=== PATIENT | female | born 1980 | race Two or more races ===

== ENCOUNTER 2024-04-10 09:04 | Emergency (ER) | payer BC, SELFPAY ==
[2024-04-10 09:16] VITALS: BP 120/79; PULSE 109; RESP 20; TEMP 38.3; O2SAT 97; BMI 27.1
--- NOTE | 2024-04-10 09:27 | XR_ITS ---
Examination: Abdomen sonogram, Limited Date and time of exam: April 10, 2024 10:28 AM INDICATIONS: Onset right upper abdominal pain beginning 4 days ago Technique: Real-time moon scale transabdominal sonographic images of the upper abdomen obtained. Findings: Multiple gallstones Gallbladder sludge Gallbladder wall is thickened 10 mm Common bile duct is enlarged 0.8 cm no definite stones Pancreatic head 2.5 cm Liver 14.5 cm fatty liver Normal hepatopedal portal venous flow Patent IVC IMPRESSION: Findings most consistent with acute calculus cholecystitis Abnormally enlarged common bile duct 0.8 cm, suggest MRCP follow-up
--- NOTE | 2024-04-10 09:28 | PD.EDRME ---
Rapid Medical Screening Exam RME Arrival date/time: 04/10/24 09:04 43-year-old female presents emergency department complaints of abdominal pain Chief Complaint: Abdominal Pain Time Seen by Provider: 04/10/24 09:06 Vital signs: Vital Signs Temperature 101.0 F H 04/10/24 09:16 Pulse Rate 109 H 04/10/24 09:16 Respiratory Rate 20 04/10/24 09:16 Blood Pressure 120/79 04/10/24 09:16 Pulse Oximetry (%) 97 04/10/24 09:16 Oxygen Delivery Method Room Air 04/10/24 09:16
--- NOTE | 2024-04-10 09:37 | PD.EDABDPN ---
ED Abdominal Pain RME/HPI General Chief Complaint: Abdominal Pain Stated complaint: Right side abdominal pain X 4 days Time seen by provider: 04/10/24 09:06 Arrival date/time: 04/10/24 09:04 RME / HPI RME / HPI narrative: 04/10/24 09:04 43-year-old female presents emergency department complaints of abdominal pain This section includes all my notes and documentations, including HPI, PE, MDM, Procedure Notes, and PLAN. Darian Cardona MD HPI: 43-year-old female with known gallstones presents with severe RUQ tenderness and nausea since yesterday. With subjective fever and chills and aches. No cough or congestion. No urinary symptoms. No other complaints. ROS: Respiratory: negative except as documented in HPI. Gastrointestinal: negative except as documented in HPI. Genitourinary: negative except as documented in HPI. Musculoskeletal: negative except as documented in HPI. Skin: negative except as documented in HPI. Neurological: negative except as documented in HPI. Physical Exam: General: Alert and oriented. Appears uncomfortable. Eyes: Conjunctivae and lids clear. ENT: No nasal congestion. Pharynx normal. Tympanic membrane normal bilaterally. Neck: Supple. Heart: RRR. Lungs: No respiratory distress. Good air movement. No rhonchi, wheezing, rales. Abdomen: Soft with RUQ tenderness. Normal bowel sounds. No distension. No rebound or guarding. Back: No CVA tenderness. Skin: Warm and dry. Neuro: Alert and oriented X 3. I reviewed EMS and correction notes. I reviewed all diagnostic test results. My interpretation of the chest x-ray is no acute findings. My review of the abdominal CT report is cholecystitis. Blood tests and urine tests remarkable for WBC 15.9 and normal LFT. At this point, diagnoses include cholecystitis. Treatment here included IV fluid, Zofran 4 mg IV, Toradol 30 mg IV, morphine 4 mg IV, Tylenol 1000 mg, and Unasyn 1.5 g IV. Significant improvement noted subjectively and objectively. I discussed the case with our surgeon on-call (Dr. Sena). About the presentation and exam and diagnostics and treatments here. And possible need of further care in the hospital. Recommended outpatient follow-up with him. Based on my best medical judgment, made decision no further evaluation or treatment indicated at this time. Patient understands and agrees to the discharge instructions customized and printed, see below. Related Data Previous Rx's ?Medication ?Instructions ?Recorded etodolac 400 mg tablet 400 mg PO BID PRN pain #30 tabs 03/30/21 methocarbamol 750 mg tablet 750 mg PO TID PRN pain #30 tabs 03/30/21 acetaminophen 300 mg-codeine 30 mg 2 tab PO TID PRN pain #20 tabs 04/10/24 tablet amoxicillin 875 mg-potassium 1 tab PO BID #10 tabs 04/10/24 clavulanate 125 mg tablet ondansetron 4 mg disintegrating 4 mg PO TID PRN nausea and 04/10/24 tablet vomiting 5 days #10 tabs Allergies Allergy/AdvReac Type Severity Reaction Status Date / Time No Known Allergies Allergy Verified 03/30/21 20:05 Course Quality Measures Current suspected stage: ruled out Possible source: GI tract/intra-abdominal Blood cultures ordered: yes Antibiotic ordered: Yes Pertinent labs: 04/10/24 09:15 Lactic Acid 0.9 mMol/L (0.4-2.0) Procalcitonin 0.11 ng/ml (0.0-0.49) sepsis Orders Category Date Time Status Bedside COVID-19 Antigen Test NOW Care 04/10/24 09:27 Active Bedside Influenza A&B Antigen Test NOW Care 04/10/24 09:27 Completed Insert IV NOW Care 04/10/24 09:28 Active US gall bladder Stat Exams 04/10/24 09:27 Completed XR chest 1V portable Stat Exams 04/10/24 09:38 Completed Blood Culture (Lab) Stat Lab 04/10/24 09:25 Received CBC Stat Lab 04/10/24 09:15 Completed Comprehensive Metabolic Panel Stat Lab 04/10/24 09:15 Completed HCG Qualitative,Urine Stat Lab 04/10/24 09:37 Completed Lactate (Lactic Acid) Stat Lab 04/10/24 09:15 Completed Lipase Stat Lab 04/10/24 09:15 Completed Procalcitonin Stat Lab 04/10/24 09:15 Completed Urinalysis Stat Lab 04/10/24 09:37 Completed Urine Culture Stat Lab 04/10/24 09:47 Received Acetaminophen Tab [Tylenol ES Tab] Med 04/10/24 09:29 Discontinued 1,000 mg PO X1 ONE Ampicillin/Sulbac Inj [Unasyn Inj] 1.5 gm Med 04/10/24 12:04 Discontinued Sodium Chloride 0.9% (P) [Ns 0.9% (P)] 50 ml IV X1 Ketorolac Inj [Toradol Inj] Med 04/10/24 09:37 Discontinued 30 mg IVP X1 ONE Morphine Inj Med 04/10/24 09:37 Discontinued 4 mg IVP X1 ONE Ondansetron Inj [Zofran Inj] Med 04/10/24 09:37 Discontinued 4 mg IV X1 ONE Sodium Chloride 0.9% 1000 ml [Ns] 1,000 ml Med 04/10/24 09:37 Discontinued IV 999 mls/hr Vital Signs Vital signs: Vital Signs Temperature 101.0 F H 04/10/24 09:16 Pulse Rate 109 H 04/10/24 09:16 Respiratory Rate 20 04/10/24 09:16 Blood Pressure 120/79 04/10/24 09:16 Pulse Oximetry (%) 97 04/10/24 09:16 Oxygen Delivery Method Room Air 04/10/24 09:16 Abdominal Pain MDM Patient data External records reviewed:: [facility] previous records Clinical information provided by:: patient Social determinants that could affect healthcare access:: none Patient has the following chronic illnesses:: Gallstones How is presenting disease/condition affected by chronic disease/condition?: exacerbated by Evaluation data The following diagnostics were reviewed and interpreted by me:: lab results and radiology exam(s) Lab and/or radiology exams considered but not ordered:: None Interpretation Summary: Cholecystitis Medications / Prescriptions Medications or Prescriptions considered but not ordered:: None Medication administrations:: Medication Administration History Discontinued Medications Acetaminophen (Acetaminophen 500 Mg Tablet) 1,000 mg PO X1 ONE Stop: 04/10/24 09:30 Last Admin: 04/10/24 09:39 Dose: 1,000 mg Documented By: RENETTA Sodium Chloride (Ns) 1,000 mls @ 999 mls/hr IV .Q1H1M ONE Stop: 04/10/24 10:37 Last Infusion: 04/10/24 12:58 Dose: Infused Documented By: Admin: 04/10/24 10:09 Dose: 999 mls/hr Documented By: RENETTA Ampicillin Sodium/Sulbactam (Sodium 1.5 gm/ Sodium Chloride) 50 mls @ 100 mls/hr IV X1 ONE Stop: 04/10/24 12:05 Last Admin: 04/10/24 12:59 Dose: 100 mls/hr Documented By: ANASTACIA Ketorolac Tromethamine (Ketorolac Inj 30 Mg/Ml Vial) 30 mg IVP X1 ONE Stop: 04/10/24 09:38 Last Admin: 04/10/24 10:11 Dose: 30 mg Documented By: TM Morphine Sulfate (Morphine Sulf Inj 10 Mg/Ml Vial) 4 mg IVP X1 ONE Stop: 04/10/24 09:38 Last Admin: 04/10/24 10:11 Dose: 4 mg Documented By: TM Comments: HR 96 BP 120/81 Ondansetron HCl (Ondansetron Inj 2 Mg/Ml Inj 2 Ml) 4 mg IV X1 ONE; Protocol Stop: 04/10/24 09:38 Last Admin: 04/10/24 10:11 Dose: 4 mg Documented By: RENETTA See charting Consultations Consultation(s) initiated? (list below): Yes Consultation #1 (Physician, Specialty, Details): Dr. Sena Diagnosis Differential diagnosis abdominal pain: acute appendicitis, calculus of kidney, constipation, diverticulitis, gastroenteritis, pancreatitis, small bowel obstruction and other (Cholecystitis) Most likely diagnosis given after review of the tests above:: Cholecystitis Admission Indicated Admission indicated?: not indicated Explain why admission is indicated or not indicated:: Dr Sena recommended outpatient treatment. Admission Request Was there a request for admission?: No Disposition Plan Disposition Plan: Discharge Discharge Attestation Discharge Attestation: The patient and all family members were given an opportunity to ask questions and understood the discharge instructions. Discharge instructions specifically effects, indications for sooner follow up or return to the emergency department, and the expected course of current diagnosis. Patient condition: Stable Discharge Plan Plan Patient Disposition: HOME (Self Care) Prescriptions/Referrals Prescriptions/Med Rec: New acetaminophen-codeine 300-30 mg tablet 2 tab PO TID MDD 6 PRN (Reason: pain) Qty: 20 0RF ondansetron 4 mg tablet,disintegrating 4 mg PO TID PRN (Reason: nausea and vomiting) 5 Days Qty: 10 0RF amoxicillin-pot clavulanate 875-125 mg tablet 1 tab PO BID Qty: 10 0RF No Action methocarbamol 750 mg tablet 750 mg PO TID PRN (Reason: pain) Qty: 30 0RF etodolac 400 mg tablet 400 mg PO BID PRN (Reason: pain) Qty: 30 0RF Referrals: Uvaldo Garsia MD [Primary Care Provider] - In 1 week Problem List Clinical Impression: Acute cholecystitis Patient/Caregiver Discharge Instructions Education Materials: ED Cholecystitis, Presumed Additional Instructions: Discharge Instructions from Dr. Cardona: 1. After evaluation, your symptoms are due to gallstones with infection.? You need gallbladder to help digest fatty foods. 2. So to prevent future attacks, avoid all fatty and oily and greasy and buttery and dairy foods.? This usually means take out and fast food restaurants. 3. Zofran for nausea/vomiting.? Tylenol with codeine for severe pain.? Augmentin to help early infection and to prevent severe infection. 4. See our surgeon (Dr. Sena) on 04/14/2024 for further care, including discussion of elective surgery.? Call and let them know you were seen in the ER and he was on-call, and they will give you an appointment. 5. Seek immediate medical care with intolerable pain or with any concerns. Print Language: Divehi Stand Alone Forms: Karen Award Info., Patient Portal Info Letter
[2024-04-10 09:38] LABS: Lactate (Lactic Acid) 0.9 mMol/L (0.4-2.0)
--- NOTE | 2024-04-10 09:38 | XR_ITS ---
Examination: AP chest single view Technique one AP portable upright chest single view Exam date and time: April 10, 2024 1002 hours INDICATIONS: Onset fever today. FINDINGS: Normal heart size Lungs are clear. The osseous structures are intact IMPRESSION: No active disease
[2024-04-10 09:39] VITALS: TEMP 38.3
[2024-04-10 09:39] LABS: Basophils # (Auto) 0.1 Thou/mm3 (0.0-0.2); Basophils % (Auto) 0 % (0-2.5); Eosinophils % (Auto) 0 % (0-10); Hemoglobin 12.7 g/dL (12.0-16.0); Immature Granulocytes % (Auto) 0 % (0-0); Immature Granulocytes Auto 0.06 Thou/mm3 (0.00-0.00); Lymphocytes # (Auto) 1.4 Thou/mm3 (1.0-4.8); Lymphocytes % (Auto) 9 % (10-50); Mean Corpuscular HGB Conc 33.4 g/dl (31.0-37.0); Mean Corpuscular Hemoglobin 29.3 pg (25.0-35.0); Mean Corpuscular Volume 88 fL (80-100); Monocytes # (Auto) 1.3 Thou/mm3 (0.0-0.8); Monocytes % (Auto) 8 % (0-12); Neutrophils # (Auto) 13.1 Thou/mm3 (1.8-7.7); Neutrophils % (Auto) 82 % (37-80); Nucleated Red Blood Cell % 0 /100 WBC (0); Platelet Count 276 Thou/mm3 (140-440); RDW Standard Deviation 39.6 fL (36.4-46.3); Red Blood Count 4.33 Miln/mm3 (4.00-5.20); White Blood Count 15.9 Thou/mm3 (3.6-11.0)
[2024-04-10] MEDS: ACETAMINOPHEN 500 MG TABLET 1000 MG PO (09:39)
[2024-04-10 10:04] VITALS: BP 120/81; PULSE 99; RESP 17; TEMP 37.3; O2SAT 95
[2024-04-10 10:05] LABS: Alanine Aminotransferase 21 U/L (10-49); Albumin, Serum 4.6 gm/dL (3.5-5.0); Albumin/Globulin Ratio 1.4 (1.2-2.2); Alkaline Phosphatase 98 U/L (46-116); Anion Gap 8 (7-16); Aspartate Amino Transferase 22 U/L (0-34); BUN/Creatinine Ratio 9 Ratio (12-20); Bilirubin,Total 1.2 mg/dL (0.3-1.2); Blood Urea Nitrogen 7 mg/dL (9-23); Calcium 9.3 mg/dL (8.3-10.6); Calcium (Corrected) 9.3 mg/dL (8.5-10.1); Chloride 104 mMol/L (98-107); Creatinine (Component) 0.8 mg/dL (0.6-1.3); Estimated Creatinine Clearance 78.5 mL/min (>60); Globulin 3.3 gm/dL (2.3-3.5); Glucose 104 mg/dL (74-106); Lipase 25 U/L (12-53); Osmolality,Calculated 268 (275-295); Potassium 3.5 mMol/L (3.4-5.1); Procalcitonin 0.11 ng/ml (0.0-0.49); Sodium 135 mMol/L (136-145); Total Protein 7.9 gm/dL (5.7-8.2); eGFR > 60 See Note
[2024-04-10] MEDS: SODIUM CHLORIDE 0.9% 1000 ML 1,000 ML 999 ML IV (10:09)
[2024-04-10] MEDS: KETOROLAC INJ 30 MG/ML VIAL IVP (10:11)
[2024-04-10] MEDS: ONDANSETRON INJ 2 MG/ML INJ 2 ML 4 MG IV (10:11)
[2024-04-10] MEDS: MORPHINE SULF INJ 10 MG/ML VIAL 4 MG IVP (10:11)
[2024-04-10 10:13] LABS: Collection Type, Urine Clean Catch
[2024-04-10 10:18] LABS: Bacteria,Urine Rare; Bilirubin,Urine Negative (Negative); Blood,Urine 1+ (Negative); Clarity,Urine Clear (Clear/Hazy); Color,Urine Yellow (Lt Yel-Yel); Glucose, Urine Negative (Negative); Ketones,Urine 4+ (Negative); Leukocyte Esterase,Urine Negative (Negative); Nitrite,Urine Negative (Negative); Protein,Urine 1+ (Neg - Trace); RBC,Urine 9 /hpf (0-3); Specific Gravity,Urine 1.028 (1.001-1.035); Squamous Epithelial Cell,Urine 6 /hpf (0-5); WBC,Urine 6 /hpf (0-5)
[2024-04-10 10:19] LABS: HCG Qualitative,Urine Negative
[2024-04-10 11:58] VITALS: TEMP 36.8
[2024-04-10] MEDS: AMPICILLIN/SULBAC INJ 1.5 GM in SODIUM CHLORIDE 0.9% (P) 50 ML IV (12:59)
[2024-04-10 17:30] VITALS: BP 115/80; PULSE 84; RESP 16; TEMP 36.6; O2SAT 100
== END 2024-04-10 17:00 | disposition home or self-care (01) ==
PROVIDERS: Nurse Practitioner Primary Care; Emergency Provider Emergency Medicine; PCP Family Medicine
DX: K80.00 Calculus of gallbladder with acute cholecystitis without obstruction (principal); R50.9 Fever, unspecified
CPT/HCPCS: 36415; 71045; 76705; 80053; 81001; 81025; 83605; 83690; 84145; 85025; 87040; 87086; 87400; 87811; 96361; 96374; 96375; 99284; J0295; J1885; J2270; J2405; J7030; J7050; A9270

== ENCOUNTER 2024-05-16 09:35 | Day surgery (SDC) | payer BC, SELFPAY ==
--- NOTE | 2024-05-12 07:00 | EKG_ITS ---
[facility] Test Date: 2024-05-12 Pat Name: DANIS BRANDT Department: Room: - Gender: Female Client Relationship Consultant: MARCELLO : 1980 Requested By: Bassam Boyd Order Number: [id number] Reading MD: Bassam Boyd Measurements Intervals [place] Rate: 72 P: 31 NH: 160 QRS: 48 QRSD: 83 T: 37 QT: 387 QTc: 424 Interpretive Statements SINUS RHYTHM No previous ECG available for comparison /store/S0/[id number]/ecg/[id number].pdf
[2024-05-12 09:03] VITALS: BMI 26.6
[2024-05-12 09:21] LABS: Collection Type, Urine Clean Catch
[2024-05-12 10:05] LABS: Basophils # (Auto) 0.1 Thou/mm3 (0.0-0.2); Basophils % (Auto) 1 % (0-2.5); Eosinophils # (Auto) 0.1 Thou/mm3 (0.0-0.5); Eosinophils % (Auto) 2 % (0-10); Hemoglobin 13.8 g/dL (12.0-16.0); Immature Granulocytes % (Auto) 0 % (0-0); Lymphocytes # (Auto) 1.8 Thou/mm3 (1.0-4.8); Lymphocytes % (Auto) 33 % (10-50); Mean Corpuscular HGB Conc 32.9 g/dl (31.0-37.0); Mean Corpuscular Hemoglobin 29.2 pg (25.0-35.0); Mean Corpuscular Volume 89 fL (80-100); Monocytes # (Auto) 0.5 Thou/mm3 (0.0-0.8); Monocytes % (Auto) 8 % (0-12); Neutrophils # (Auto) 3.2 Thou/mm3 (1.8-7.7); Neutrophils % (Auto) 57 % (37-80); Nucleated Red Blood Cell % 0 /100 WBC (0); Platelet Count 336 Thou/mm3 (140-440); RDW Standard Deviation 38.9 fL (36.4-46.3); Red Blood Count 4.72 Miln/mm3 (4.00-5.20); White Blood Count 5.6 Thou/mm3 (3.6-11.0)
[2024-05-12 10:21] LABS: Alanine Aminotransferase 10 U/L (10-49); Albumin, Serum 4.7 gm/dL (3.5-5.0); Albumin/Globulin Ratio 1.4 (1.2-2.2); Alkaline Phosphatase 87 U/L (46-116); Anion Gap 9 (7-16); Aspartate Amino Transferase 17 U/L (0-34); BUN/Creatinine Ratio 11 Ratio (12-20); Bilirubin,Total 0.5 mg/dL (0.3-1.2); Blood Urea Nitrogen 9 mg/dL (9-23); Calcium 9.7 mg/dL (8.3-10.6); Calcium (Corrected) 9.7 mg/dL (8.5-10.1); Chloride 105 mMol/L (98-107); Creatinine (Component) 0.8 mg/dL (0.6-1.3); Estimated Creatinine Clearance 77.7 mL/min (>60); Globulin 3.3 gm/dL (2.3-3.5); Glucose 100 mg/dL (74-106); Osmolality,Calculated 279 (275-295); Potassium 3.7 mMol/L (3.4-5.1); Sodium 141 mMol/L (136-145); eGFR > 60 See Note
[2024-05-12 10:37] LABS: Partial Thromboplastin Time 28.8 Seconds (22.0-36.0); Prothrombin Time 11.4 Seconds (9.0-12.2)
[2024-05-12 11:31] LABS: HCG Qualitative,Urine Negative
[2024-05-12 11:40] LABS: Bacteria,Urine 3+; Bilirubin,Urine Negative (Negative); Blood,Urine Negative (Negative); Color,Urine Yellow (Lt Yel-Yel); Glucose, Urine Negative (Negative); Ketones,Urine Negative (Negative); Leukocyte Esterase,Urine Positive (Negative); Nitrite,Urine Positive (Negative); PH,Urine 6.5 (5.0-7.0); Protein,Urine Trace (Neg - Trace); RBC,Urine 3 /hpf (0-3); Specific Gravity,Urine 1.027 (1.001-1.035); Squamous Epithelial Cell,Urine 5 /hpf (0-5); Urobilinogen,Urine Negative mg/dL (0.0-1.0); WBC,Urine 20 /hpf (0-5)
[2024-05-12 11:43] LABS: Clarity,Urine Hazy (Clear/Hazy)
--- NOTE | 2024-05-14 14:16 | PD.SURHP ---
HPI Date of Admission May 16, 2024 Chief Complaint Chief Complaint: Cholecystitis cholelithiasis HPI This 43-year-old female is brought to the hospital for laparoscopic cholecystectomy possible open. She has had abdominal pain off and on for a period of long time and recently required emergency room visits she was found to have gallstones and cholecystitis. She was treated with antibiotics now the episode appears to have quieted down she is brought to the hospital for laparoscopic cholecystectomy. Risk benefits and alternatives were discussed with the patient and informed consent is obtained. There is a small risk of bile duct injury. Past Medical History Past Medical History NEUROLOGIC: Negative Neurological Disorders CARDIAC: Negative Cardiac Disorders or Congestive Heart Failure RESPIRATORY: Negative Respiratory Disorders or Chronic Obstructive Pulmonary Disease (COPD) GASTROINTESTINAL: Positive Gastrointestinal Disorders and Gall Bladder Disease; Negative Hepatitis GENITOURINARY: Negative Genitourinary Disorders or Renal Disease REPRODUCTIVE: Positive Previous Pregnancies MUSCULOSKELETAL: Positive Fractures (right forearm, left elbow has metal); Negative Musculoskeletal Disorders ENT: Negative History of ENT Problems ENDOCRINE: Negative Endocrine Disorders, Diabetes Mellitus Type 1 or Diabetes Mellitus Type 2 HEMATOLOGIC: Negative Blood Disorders OTHER HISTORY: Positive Hospitalization (surgery); Negative Autoimmune Disease, Shingles, Blood Transfusions, Anesthesia Reactions or Cancer Family History FAMILY HISTORY: Positive Family Endocrine Disorders, Family Cancer and Family Surgery; Negative Family Psychiatric Problems, Family Respiratory Disorders, Family Cardiac Disorders, Family Gastrointestinal Problems, Family Genitourinary Problems, Family Reproductive Disorders, Family Musculoskeletal Disorders or Family Anesthesia Reaction Surgical History SURGICAL: Positive Open Reduction Internal Fixation (left elbow with screws, right forearm has plate) Social History SMOKING STATUS: Never smoker Travel History EBOLA RISK: No Meds Home Medications and Allergies Home Medications ?Medication ?Instructions ?Recorded ?Confirmed ?Type No Known Home Medications 05/12/24 05/12/24 History Allergies Allergy/AdvReac Type Severity Reaction Status Date / Time No Known Allergies Allergy Verified 05/12/24 09:01 Exam Constitutional Constitutional: no acute distress Routine HEENT Exam Head: Present normocephalic Eye: Present EOMI and PERRL ENT: Present mucous membranes moist Routine Neck Exam Neck: Present supple and trachea midline Routine Chest/Breast/Axilla Exam Chest wall: Absent tenderness or mass Routine Respiratory Exam Respiratory: Present chest non-tender, lungs clear, normal breath sounds and no resp distress; Absent respiratory distress Routine Cardiovascular Exam Cardiovascular: Present RRR Routine Abdominal Exam Abdominal: Present soft, normoactive bowel sounds and tenderness (There is mild right upper quadrant tenderness with borderline positive Hilton sign. There is no hepatosplenomegaly.) Routine Extremities Exam Extremities: Present full ROM Routine Skin Exam Skin: Present intact, dry and warm Routine Neurological Exam Neurological: Present alert, oriented X3 and CN II-XII intact Routine Psychiatric Exam Psychiatric: Present normal affect and normal thought process Results Results: Laboratory Laboratory results: results reviewed (The liver function test were elevated about a month ago but now they have come down to normal alkaline phosphatase is normal.) Assessment & Plan Problem List (1) Cholelithiasis and cholecystitis without obstruction: Status: Acute Plan Laparoscopic cholecystectomy possible open. Risk benefits alternatives were discussed with the patient and informed consent is obtained. There is a small risk of injury to the common bile duct. Quality Measures Quality Measures VTE prophylaxis
--- NOTE | 2024-05-15 13:32 | SUR.PREOP ---
Pt notified of surgery time changed, pt to come in at 0930.
[2024-05-16] VITALS (8 sets, daily range): BP systolic 113–127; BP diastolic 70–83; PULSE 73–90; RESP 13–15; TEMP 36.4–36.8; O2SAT 95–100; BMI 27.0
--- NOTE | 2024-05-16 10:25 | CHAP ---
Patient expressed gratitude for prayer before their procedure.
[2024-05-16 10:37] LABS: COVID-19 Antigen (In-House) Negative (Negative)
[2024-05-16] MEDS: RINGERS LACTATED 1000 ML 1,000 ML 60 ML IV (11:43)
--- NOTE | 2024-05-16 13:21 | PD.SUROPNT ---
Date of Procedure 05/16/24 Pre Op Diagnosis Cholecystitis cholelithiasis Post Op Diagnosis Same with empyema of the gallbladder and perforated gallbladder Procedure Difficult laparoscopic cholecystectomy drainage of empyema and retrocholecystic abscess. On May 16, 2024 Findings This patient has had a cholecystitis cholelithiasis for past several months. This she has gone to the emergency room multiple times. At one time her liver function test were all elevated. Upon laparoscopic examination she was found to have dense adhesions with the gallbladder gallbladder wall was thickened to about a centimeter in size. There was a retrocolic cystic perforation and gallbladder was full of purulent material. Culture and sensitivity was taken. The triangle of Calot was very difficult to defect dissected with chronic collagen and scar tissue attaching the cystic duct to the common bile duct. This made that quite difficult. Posterior view of safety was achieved before clipping the cystic duct. The cystic artery was not clearly identifiable and likely was thrombosed. Procedure Description In the preop area the procedure was discussed with the patient including risks benefits and alternatives. The risks include possible laparotomy, bleeding, infection bile duct injury and bile leak. Patient may require ERCP for retained stone or a bile leak. The anesthesia risks are to be explained to the patient by the anesthesiologist. Informed consent was obtained. The patient was positioned supine on the operating table and general anesthesia was administered in a satisfactory manner by the anesthesiologist. The patient is positioned in the reverse Trendelenburg position with the right side up. Orogastric tube is introduced into the stomach to decompress the stomach. Prophylactic antibiotics were given in timely manner. Antiembolism measures were taken. The abdomen chest and groin regions were prepped and draped in usual manner. A supraumbilical verticle incision was made and deepened through the layers of abdominal wall and open laparoscopic procedure is carried out. The balloon catheter was introduced and pneumoperitoneum is achieved. A 30? scope was used. Under direct vision right subxiphoid, midclavicular and anterior axillary line trochars were introduced. The gallbladder is then examined and shows that there is significant amount of collagenous adhesions of the omentum and the colon to the gallbladder. Laparoscopic lysis of these adhesions is carried out very gently. After extensive careful tedious dissection the gallbladder was freed from the adhesions to the omentum and in the transverse colon. The transverse colon was protected from perforation. It was difficult to lift and grasp the gallbladder because of the thickness of the wall. Finally I was able to gently dissect the adhesions that were between the cystic duct and gallbladder and the common bile duct. There was no actual evidence of entrance of bile from the gallbladder to the common duct like Mirizzi syndrome. However potentially in the future it could have developed a connection between the gallbladder and the common bile duct if the gallbladder was not removed. I came to that conclusion because of the amount of collagen a scar tissue that was present between the gallbladder and the common duct. I was able to identify the right hepatic artery making a inverted U by the knuckle of the artery, the cystic artery was small and did not require Hemoclip it was taken down with the ultrasonic juliana. After all these I was able to lift up the gallbladder and I was able to incise the peritoneum on both the sides of the gallbladder to lift the gallbladder up to see the posterior view of safety. The gallbladder plate was examined and shows clearly that there is a cystic duct which is coming from the common duct and is not tented up. I dissected the gallbladder from the liver bed and then finally it was the gallbladder hanging by the cystic duct then only I put the hemoclips on the cystic duct. I clipped the cystic duct close to the gallbladder neck and divided the cystic duct close to the gallbladder leaving a significant length of cystic duct stump towards the common bile duct. The gallbladder bed hemostasis is achieved. The gallbladder is retrieved out of the peritoneal cavity in a specimen bag. The balloon cannula is reintroduced and pneumoperitoneum is reestablished. The peritoneal cavity is thoroughly irrigated with sterile saline solution and hemostasis again ascertained. All the cannulas are removed under direct vision there is no bleeding from the cannula sites. The linea alba repair is carried out with the 0 Vicryl continuous suture. The subcutaneous tissues approximated by a 3-0 chromic and skin by 4-0 monocril subcuticular stitch. For the rest of the trocar site incisions are closed in 2 layers with a 3-0 chromic and 4-0 monocril subcuticular stitch. Steri-Strips are applied. Sterile dressings are applied. Complications none estimated loss of blood 10 mL Patient is transferred to the recovery room in a satisfactory condition. Anesthesia GETA Drains None. Implants None. Pathology / specimen Other (Gallbladder with contents and culture and sensitivity from the empyema) Estimated Blood Loss 10 Condition Stable Disposition PACU Surgeon Bassam Boyd MD Surgical Staff Operation Date: 05/16/24 11:30 Case Staff Anesthesiologist: Ubaldo Messer RN First Assistant: Anuradha Ludwig surgical services assistant Michelle ESCOBAR material coordinator
--- NOTE | 2024-05-16 13:39 | SUR.PHASEI ---
1339: Pt. wakes to name then drifts back to sleep, vitals stable, breathing unlabored, no complaint of pain or nausea, dressing to ABD CDI, no active bleed noted, report received from MD Messer and Chelsea ESCOBAR.
--- NOTE | 2024-05-16 14:39 | SUR.PHASEII ---
1439: Pt. AAOx4, vitals stable, breathing unlabored, no complaint of pain or nausea, dressing to ABD CDI, no active bleed noted, pt. tolerated sips of water well, pt. ambulated to wheelchair with steady gait and no assist, no complications. Gave discharge instructions to the pt. and her ride, both verbalized understanding and had no further questions. Pt. left wtih all personal belongings.
== END 2024-05-16 14:39 | disposition home or self-care (01) ==
PROVIDERS: Anesthesiology; PCP Family Medicine; Referring Provider Specialist; Visit Provider Specialist
PROC: 0FT44ZZ Resection of Gallbladder, Percutaneous Endoscopic Approach (ICD-10-PCS; CPT 47562; principal; 2024-05-16 11:30)
DX: K80.12 Calculus of gallbladder with acute and chronic cholecystitis without obstruction (principal); Z01.810 Encounter for preprocedural cardiovascular examination
CPT/HCPCS: 47562; 36415; 80053; 81001; 81025; 85025; 85610; 85730; 87070; 87075; 87077; 87186; 87205; 87811; 93005; A4217; A4649; J0690; J1100; J1885; J2250; J2405; J2704; J3010; J3490; J7120